=== PATIENT | female | born 1965 | race Caucasian/White ===

== ENCOUNTER → 2017-03-11 | Outpatient (CLI) | payer BC ==
--- NOTE | 2017-03-11 09:03 | MM ---
Reason for exam: additional evaluation requested from prior study. Last mammogram was performed 1 year and 4 months ago. History: Patient is postmenopausal. Excisional biopsy of the left breast, June 16, 2007. Benign excisional biopsy of the left breast, 2000. Benign excisional biopsy of the right breast, 1995. Took hormonal contraceptives for 3 years beginning at age 15. Took estrogen for 3 years beginning at age 37. Physical Findings: Nurse did not find any significant physical abnormalities on exam. MG Diagnostic Mammo w CAD KAREN Bilateral CC and MLO view(s) were taken. Prior study comparison: November 10, 2015, bilateral MG screening mammo w CAD. June 15, 2013, [facility] DIGITAL LEFT BREAST MAMMOGRAM w/CAD. June 11, 2013, bilateral digital screening mammo w/CAD. There are scattered fibroglandular densities. Developing asymmetry in the left subareolar position. This finding is changed when compared with previous exams. These results were verbally communicated with the patient and result sheet given to the patient on 03/11/17. ASSESSMENT: Probably benign, BI-RAD 3 RECOMMENDATION: Follow-up diagnostic mammogram of the left breast in 3 months. Manage patient on a clinical basis.
--- NOTE | 2017-03-11 09:06 | USB ---
Reason for exam: additional evaluation requested from prior study. History: Patient is postmenopausal. Excisional biopsy of the left breast, June 16, 2007. Benign excisional biopsy of the left breast, 2000. Benign excisional biopsy of the right breast, 1995. Took hormonal contraceptives for 3 years beginning at age 15. Took estrogen for 3 years beginning at age 37. US Breast LT Left breast ultrasound includes all four quadrants, the retroareolar region and axilla. Finding demonstrates a 2.5 x 2.9 x 1.0cm oval, irregular, mixed, hypoechoic, vascular lesion at the subareolar position. Diagnosis includes abscess and neoplasm. Vascularity may extend into lesion. Follow up to clearing or biopsy. These results were verbally communicated with the patient and result sheet given to the patient on 03/11/17. ASSESSMENT: Probably benign, BI-RAD 3 RECOMMENDATION: Ultrasound of the left breast in 3 months. Manage patient on a clinical basis.
== END | disposition home or self-care (01) ==
LOC: RADMAMWWP 07:39
PROVIDERS: ATTEND Family Medicine
DX: N64.4 Mastodynia (principal)
CPT/HCPCS: 76641; G0204

== ENCOUNTER → 2018-12-17 | Outpatient (CLI) | payer BC ==
--- NOTE | 2018-12-18 11:51 | MM ---
Reason for exam: screening (asymptomatic). Last mammogram was performed 1 year and 9 months ago. History: Patient is postmenopausal. Excisional biopsy of the left breast, June 16, 2007. Benign excisional biopsy of the left breast, 2000. Benign excisional biopsy of the right breast, 1995. Took hormonal contraceptives for 3 years beginning at age 15. Took estrogen for 3 years beginning at age 37. Physical Findings: A clinical breast exam by your physician is recommended on an annual basis and results should be correlated with mammographic findings. MG 3D Screening Mammo W/Cad Bilateral CC and MLO view(s) were taken. Prior study comparison: March 11, 2017, bilateral MG diagnostic mammo w CAD K[facility]. November 10, 2015, bilateral MG screening mammo w CAD. There are scattered fibroglandular densities. There is no discrete abnormality. No significant changes when compared with prior studies. ASSESSMENT: Negative, BI-RAD 1 RECOMMENDATION: Routine screening mammogram of both breasts in 1 year.
== END | disposition home or self-care (01) ==
LOC: RADMAMWWP 10:48
PROVIDERS: ATTEND Family Medicine
DX: Z12.31 Encounter for screening mammogram for malignant neoplasm of breast (principal)
CPT/HCPCS: 77063; 77067

== ENCOUNTER → 2020-04-21 | Outpatient (CLI) | payer BC ==
--- NOTE | 2020-04-27 10:35 | MM ---
Reason for exam: screening (asymptomatic). Last mammogram was performed 1 year and 4 months ago. History: Patient is postmenopausal. Excisional biopsy of the left breast, June 16, 2007. Benign excisional biopsy of the left breast, 2000. Benign excisional biopsy of the right breast, 1995. Took hormonal contraceptives for 3 years beginning at age 15. Took estrogen for 3 years beginning at age 37. Physical Findings: A clinical breast exam by your physician is recommended on an annual basis and results should be correlated with mammographic findings. MG 3D Screening Mammo W/Cad Bilateral CC and MLO view(s) were taken. Prior study comparison: December 17, 2018, bilateral MG 3d screening mammo w/cad. March 11, 2017, bilateral MG diagnostic mammo w CAD KAR[facility]. There are scattered fibroglandular densities. No significant changes when compared with prior studies. ASSESSMENT: Benign, BI-RAD 2 RECOMMENDATION: Routine screening mammogram of both breasts in 1 year.
== END | disposition home or self-care (01) ==
LOC: RADMAMWWP 08:05
PROVIDERS: ATTEND Obstetrics & Gynecology Obstetrics
DX: Z12.31 Encounter for screening mammogram for malignant neoplasm of breast (principal)
CPT/HCPCS: 77063; 77067

== ENCOUNTER 2022-09-02 09:38 | Day surgery (SDC) | payer BC, OTHER ==
[2022-08-29 12:52] VITALS: BMI 25.0
[~2022-09-02 09:38] MED LIST: LACTATED RINGERS 1,000 ML IV SCH; LIDOCAINE 1% (10MG/ML) FOR IV START INTRADERMA PRN
[2022-09-02 10:06] VITALS: RESP 16; TEMP 98.1
[2022-09-02] MEDS ORDERED: PROPOFOL 10 MG/ML 20 ML VIAL IV ONE (10:37)
--- NOTE | 2022-09-02 10:37 | P.GSHP ---
History of Present Illness H&P Date: 09/02/22 The patient presents for colon cancer screening. Prior colonoscopy was 5 years ago. She has a personal history of colon polyps. Denies any problems with the bowels. No family history of GI malignancy. - Review of Systems All systems: negative Past Medical History Past Medical History: Hypertension History of Any Multi-Drug Resistant Organisms: None Reported Past Surgical History: Section, Hysterectomy, Orthopedic Surgery Additional Past Surgical History / Comment(s): COLONOSCOPY. LT KNEE SX. CTR. TUMORE REMOVED FROM BLADDER-2 WEEKS AGO-WAITING FOR RESULTS Past Anesthesia/Blood Transfusion Reactions: No Reported Reaction Smoking Status: Former smoker - Past Family History Mother Family Medical History: No Reported History Medications and Allergies Home Medications Medication Instructions Recorded Confirmed Type Valsartan 80 mg PO DAILY 08/29/22 09/02/22 History amLODIPine [Norvasc] 10 mg PO DAILY 08/29/22 09/02/22 History atenoloL [Tenormin] 50 mg PO DAILY 08/29/22 09/02/22 History Allergies Allergy/AdvReac Type Severity Reaction Status Date / Time No Known Allergies Allergy Verified 09/02/22 09:56 Surgical - Exam Osteopathic Statement: *. No significant issues noted on an osteopathic structural exam other than those noted in the History and Physical/Consult. Vital Signs Temp Pulse Resp BP Pulse Ox 98.1 F 77 16 144/68 98 09/02/22 10:05 09/02/22 10:05 09/02/22 10:05 09/02/22 10:05 09/02/22 10:05 - General well developed, well nourished, no distress - Neck trachea midline - Respiratory normal expansion, clear to auscultation - Cardiovascular Rhythm: regular - Abdomen Abdomen: soft, non tender Assessment and Plan (1) Colon cancer screening Current Visit: Yes Status: Acute Code(s): Z12.11 - ENCOUNTER FOR SCREENING FOR MALIGNANT NEOPLASM OF COLON SNOMED Code(s): 194034155 (2) Personal history of colonic polyps Current Visit: Yes Status: Acute Code(s): Z86.010 - PERSONAL HISTORY OF COLONIC POLYPS SNOMED Code(s): 611447861 Plan: Colonoscopy. The procedure, risks and complications were discussed. Questions were encouraged and answered.
--- NOTE | 2022-09-02 11:02 | P.PCN ---
Date of Procedure: 09/02/22 Preoperative Diagnosis: Colon cancer screening, personal history of colon polyps Postoperative Diagnosis: Colon cancer screening, personal history of colon polyps, colon polyp Procedure(s) Performed: Colonoscopy with polypectomy Anesthesia: MAC Surgeon: Chely Diehl Pathology: other Condition: stable Disposition: PACU Description of Procedure: Patient's a 57-year-old female with personal history adenomatous colon polyps. She is taken to the endoscopy suite where colonoscope is passed per rectum to the cecum. She had excellent prep. There is a 7-8 mm polyp noted in the cecum opposite the ileocecal valve. It's removed with the polypectomy snare. The rest colon was without evidence of polyp, mass lesion, ulcer, stricture, diverticuli or other mucosal abnormality. There is some internal hemorrhoids noted on retroflexion of the scope. She tolerated the procedure without difficulty and was taken to recovery room in satisfactory condition. We'll call with the report of the polypectomy about likely repeat colonoscopy in 5 years Plan - Discharge Summary Discharge Rx Participant: No New Discharge Prescriptions: No Action atenoloL [Tenormin] 50 mg PO DAILY Valsartan 80 mg PO DAILY amLODIPine [Norvasc] 10 mg PO DAILY Discharge Medication List Valsartan 80 mg PO DAILY 08/29/22 [History] amLODIPine [Norvasc] 10 mg PO DAILY 08/29/22 [History] atenoloL [Tenormin] 50 mg PO DAILY 08/29/22 [History] Discharge Disposition: HOME SELF-CARE
[2022-09-02 11:17] VITALS: BP 146/96; PULSE 67
== END 2022-09-02 11:49 | disposition home or self-care (01) ==
LOC: ORWHC2ENDO 09:38
PROVIDERS: ATTEND Surgery
DX: Z12.11 Encounter for screening for malignant neoplasm of colon (principal); D12.0 Benign neoplasm of cecum; K64.8 Other hemorrhoids; I10 Essential (primary) hypertension; Z98.890 Other specified postprocedural states; Z98.891 History of uterine scar from previous surgery; Z90.710 Acquired absence of both cervix and uterus; Z87.891 Personal history of nicotine dependence; Z79.899 Other long term (current) drug therapy
CPT/HCPCS: 45385; 88305

== ENCOUNTER → 2024-04-09 | Outpatient (CLI) | payer OTHER ==
--- NOTE | 2024-04-09 16:00 | PE ---
EXAMINATION TYPE: PET CT fusion skull to thigh DATE OF EXAM: 04/09/2024 CLINICAL INDICATION:Female, 58 years old with history of R91.8 ENLARGED LUNG MASS; history of bladder cancer. TECHNIQUE: Following the intravenous administration of 12.91 mCi of F-18 FDG, whole body images are performed from the skull base to the midthigh. Images are reviewed on the computer in the coronal, axial, and sagittal planes. Reconstructed rotating images are created on independent workstation and reviewed on the computer. A non-contrast CT is performed in conjunction with the PET scan. Glucose level 94 mg/dL CT DLP: 506.98 mGycm, Automated exposure control for dose reduction was used. COMPARISON: CT None, PET/CT None, MRI: None FINDINGS: Mediastinal SUV mean is 3.45. Hepatic parenchyma SUV mean is 4.14. SKULL BASE AND NECK: No suspicious radiotracer activity. 1.1 cm hypodense nodule within the left thy roid lobe without FDG uptake. CHEST, MEDIASTINUM, AND HILAR REGION: Anterior right middle lobe ovoid 2.6 cm pulmonary nodule with a maximum SUV of 2.86 which is below background. No other suspicious radiotracer activity. ABDOMEN AND PELVIS: Enlarged bilateral inguinal lymph nodes with the left measuring 1.0 cm short axis with a max SUV of 4.94. The right measures up to 8 mm short axis with a max SUV of 3.95. Right exter nal iliac lymph node measuring 8 mm short axis. This demonstrates a maximum SUV of 5.84. Nonenlarged left external iliac chain lymph node measuring 8 mm short axis with a maximum SUV of 5.28. No other s uspicious radiotracer activity. MUSCULOSKELETAL STRUCTURES: No suspicious radiotracer activity. OTHER CT: Postsurgical changes of the lumbar spine with laminectomy defects. Post hysterectomy. IMPRESSION: 1. Right middle lobe 2.6 cm pulmonary nodule with FDG activity below background. Nodule is indetermi juan jose. Cannot exclude metastasis. If prior imaging could be made available, a comparison can be made. Otherwise continue surveillance is recommended with consideration for follow-up CT chest in 3-6 month s. 2. Few nonenlarged bilateral external chain and inguinal lymph nodes with mild radiotracer uptake ab ove background. These are indeterminate and may be reactive lymph nodes however metastasis is not exc luded. If prior imaging could be made available, a comparison can be made. Attention on follow-up chico callahan
== END | disposition home or self-care (01) ==
LOC: RADPETMAIN 10:34
PROVIDERS: ATTEND Family Medicine
DX: R91.8 Other nonspecific abnormal finding of lung field (principal); Z85.51 Personal history of malignant neoplasm of bladder
CPT/HCPCS: 78815; A9552

== ENCOUNTER → 2024-05-18 | Outpatient (CLI) | payer OTHER ==
--- NOTE | 2024-06-08 13:37 | CT ---
Patient: Carina Golden Ordering Physician: Unknown, Unknown ID: [id number] Phone, Pager: Phone: N/A Pager: N/A : [phone] Age/Gender: 59Y, F Primary Location: N/A Procedure: CT ChestAbdPelvis w con Study Date: 05/18/2024 12:44:00 PM EXAMINATION TYPE: CT ChestAbdPelvis w con DATE OF EXAM: 05/19/2024 INDICATION: Bladder cancer COMPARISON: PET CT 02/08/2024 CT DLP: 987.50 mGycm CONTRAST: Performed without Oral Contrast and with IV Contrast, patient injected with 100 mL of Isovue 300. TECHNIQUE: Axial images at 5 mm thick sections. Reconstructed images in the coronal plane. Delayed images through the kidneys. FINDINGS: CT CHEST: Portion of the thyroid visualized is normal. There is a 2.6 cm well-circumscribed rounded density at the anterior medial right lung base. Series 4 image 32. This is stable from the PET/CT. No enlarged mediastinal or hilar adenopathy is evident. The ascending aorta diameter at the level of the main pulmonary artery is 3.1 cm. The main pulmonary artery diameter at the bifurcation is 2.[address] ABDOMEN: Liver: Normal Spleen: Normal a small splenule is inferior to the spleen Pancreas: Normal Adrenal glands: There is mild thickening of the left adrenal gland 1.4 cm. This appears stable from c omparison. Gallbladder: Normal Kidneys: No masses are evident. No hydronephrosis is present. No cysts are present. Delayed images were obtained through the kidneys, which remain unremarkable. Aorta: Vascular calcification is within the aorta. Inferior vena cava: Normal. CT PELVIS: Loops of bowel within the abdomen and pelvis are normal. There is some fecal debris through the colo n. No dilated loops of bowel are evident. There are loops of bowel which are incompletely distended or lack oral contrast limiting their evaluation. Appendix: Normal as visualized. Urinary bladder: Decompressed with limited evaluation. Wall thickening cannot be well evaluated no ob vious nodularity is identified. Genitourinary structures: Uterus and ovaries are not identified. Osseous structures: No suspicious lytic or sclerotic lesions. IMPRESSION: 1. Urinary bladder is decompressed at the time of examination which limits evaluation of the urinary bladder. 2. No obvious changing findings to suggest new or enlarging metastatic disease. 3. Stable well-circumscribed nodule anterior right middle lung lobe. 4. Stable left adrenal gland.
== END | disposition home or self-care (01) ==
LOC: RADCTMAIN 13:00
PROVIDERS: ATTEND Internal Medicine
DX: C67.9 Malignant neoplasm of bladder, unspecified (principal); I10 Essential (primary) hypertension; R91.1 Solitary pulmonary nodule
CPT/HCPCS: 71260; 74177; Q9967